=== PATIENT | female | born 1985 | race Caucasian/White ===

== ENCOUNTER 2018-08-14 10:51 | Outpatient (CLI) | payer BC ==
--- NOTE | 2018-08-14 12:17 | ULT ---
ULTRASOUND LEFT BREAST: Date: 08/14/18 HISTORY: Left breast mass palpable abnormality. COMPARISON: None. FINDINGS: Real-time Mueller scale and color evaluation of the left breast was performed by the technologist and sadie en subsequently in real-time by the radiologist. There is a mound of breast tissue corresponding to the area of palpation. No mass. No cyst. No fibroa denoma. IMPRESSION: BIRADS Category 2 - Benign findings. POS: [facility]
== END 2018-08-14 10:52 | disposition home or self-care (01) ==
LOC: BICMAMMO 10:51
PROVIDERS: ATTEND Obstetrics & Gynecology
DX: N63.20 Unspecified lump in the left breast, unspecified quadrant (principal); Z80.3 Family history of malignant neoplasm of breast
CPT/HCPCS: 77066; G0279